=== PATIENT | male | born 1965 | race Caucasian/White ===

== ENCOUNTER 2024-08-28 11:53 | Outpatient (AMB) | payer MEDICARE, SELFPAY ==
--- NOTE | 2024-08-28 11:36 | MHC.PC.OV ---
Vital Signs 08/28/24 12:05 Height 5 ft 9.29 in Weight 249 lb 8 oz BMI 36.5 BP 128/68 Blood Pressure Location Lt brachial Position Sitting Respiration 16 Pulse 58 Pulse Source Pulse Oximeter Temp 97.5 F Temp Source Oral Pulse Oximetry (%) 98 Oxygen Delivery Method Room Air Intake Visit Reasons: isabella from [facility] Intake Note: New patient visit Information Technology Associate Required: No Allergies No Known Allergies Allergy (Verified 08/28/24 11:37) Tobacco use date assessed: 08/28/24 Dental Screening Dental Screen Date: 08/28/24 Did you have a dental visit in the last 12 months?: Yes Did you have a dental problem in the last 6 months where you did not have access to dental care?: No Was dental information given to patient?: Patient has dentist HPI HPI Comments History of Present Illness Details This is a 59-year-old male with a past medical history of prediabetes, coronary artery disease, sleep apnea, hyperlipidemia, chronic diastolic CHF, tobacco use disorder, hepatic steatosis and hypertension presenting to [facility] care. He transferred from my panel at [facility] care. Patient sees Cardiology, Dr. Baker. He is currently on valsartan, chlorthalidone, nebivolol, atorvastatin. He has a history of melanoma. He has skin exams with [facility]. He is up-to-date. He is compliant with a CPAP for sleep apnea. The patient discontinued his testosterone gel because felt like it never helped with the symptoms, and his levels with still fluctuate on it. He has seen endocrinology for this. He is concerned about the side effects of testosterone replacement as well. He is not interested in further treatment at this time. He has prediabetes. He is treated with Ozempic 2 mg weekly and has maintained his weight loss. Patient saw his back surgeon recently. He was prescribed Celebrex and Flexeril. He is off all opioids. His back still bothers him a lot, and they were discussing a spinal stimulator, but he is not going to proceed with it at this time. Patient was also taking Motrin, and he agreed to stop since he is on Celebrex now. ROS: Constitutional: No unexplained weight loss, fever, chills or night sweats. Respiratory: No shortness of breath, cough or sputum production. Cardiovascular: No chest pain, chest pressure or chest discomfort. Gastrointestinal: No anorexia, nausea, vomiting or diarrhea. No abdominal pain or blood in stool. Neurologic: No headache, dizziness, syncope Psychiatric: No SI/HI. Physical exam: Constitutional: Alert, in no distress. Head: Normocephalic. Neck: Supple, Full range of motion. No lymphadenopathy. No palpable thyroid masses. Respiratory: Clear to auscultation. Neurologic: No focal neurological deficits. Musculoskeletal: Antalgic gait Extremities: Warm and well perfused. No clubbing, cyanosis or edema. Psychiatric: Normal mood and affect [facility] Medical History (Updated 08/28/24 @ 12:22 by MARIE Ayala) History of esophageal dilatation Tobacco use disorder Spinal stenosis of lumbar region Prediabetes Obstructive sleep apnea Obesity Low testosterone Insomnia Impotence of organic origin Essential hypertension Hyperlipidemia Hyperkalemia Hepatic steatosis History of depression History of infectious mononucleosis History of cocaine abuse Gout GERD (gastroesophageal reflux disease) Chronic diastolic (congestive) heart failure Chronic back pain CAD (coronary artery disease) Bruit of left carotid artery Backache Anemia Surgical History (Updated 08/28/24 @ 12:22 by MARIE Ayala) History of knee replacement History of lumbar fusion Hx of shoulder surgery History of appendectomy Social History Housing: House Cigarettes Per Day: 10 Years Smoked: 40 e-Cigarette/Vaping Use: Former Use Second Hand Smoke Exposure: No service: Yes Current occupational status: employed and retired Current occupation: Former long term nurse Cognitive needs: No Hearing needs: No Vision needs: No Physical exam (Primary Care) Vital Signs: Last Vital Signs Temp 97.5 F 08/28/24 12:05 Pulse 58 08/28/24 12:05 Resp 16 08/28/24 12:05 BP 128/68 08/28/24 12:05 Pulse Ox 98 08/28/24 12:05 Oxygen Delivery Method Room Air 08/28/24 12:05 BMI result Body Mass Index 36.5 Tobacco/Smoking Status: Tobacco use Status Tobacco use date assessed 08/28/24 08/28/24 12:11 e-Cigarette/Vaping Use Former Use 08/28/24 12:11 Coding Level of Care Code Est Pt Level 5 (41649) Complex EM visit Add On G2211 Diagnoses Obstructive sleep apnea G47.33 Low testosterone R79.89 Spinal stenosis of lumbar region M48.061 Prediabetes R73.03 Obesity E66.9 CAD (coronary artery disease) I25.10 Time Spent (min) 48 Comment Updating chart, direct patient care, completing documentation Assessment & Plan Assessment & Plan (1) Obstructive sleep apnea: Code(s): G47.33 - Obstructive sleep apnea (adult) (pediatric) Category: Medical Plan: He has maintained weight loss, and he is going to try to lose more weight. Continue CPAP. Avoid alcohol. (2) Low testosterone: Code(s): R79.89 - Other specified abnormal findings of blood chemistry Category: Medical Plan: Patient not interested in further treatment or evaluation at this time. (3) Spinal stenosis of lumbar region: Code(s): M48.061 - Spinal stenosis, lumbar region without neurogenic claudication Category: Medical Plan: Followed by Neurosurgery. Off opioids. Reviewed side effects of Celebrex. Advised not to take this with other NSAIDs. Med list updated. (4) Prediabetes: Code(s): R73.03 - Prediabetes Category: Medical Plan: On Ozempic. Check hemoglobin A1c. (5) Obesity: Code(s): E66.9 - Obesity, unspecified Category: Medical Plan: Continue efforts at weight loss. Recheck TSH. Lifestyle modifications reviewed. Continue GLP 1. (6) CAD (coronary artery disease): Code(s): I25.10 - Atherosclerotic heart disease of [place] coronary artery without angina pectoris Category: Medical Plan: No anginal symptoms. Continue current medications. Check lipid profile. Plan He will receive an updated COVID-19 booster and flu shot at his pharmacy. He will schedule a physical exam in 6 months. Orders: Orders Lipid Panel Today D64.9 - Anemia, unspecified, E78.5 - Hyperlipidemia, unspecified, F17.200 - Nicotine dependence, unspecified, uncomplicated, I25.10 - Atherosclerotic heart disease of [place] coronary artery without angina pectoris, K76.0 - Fatty (change of) liver, not elsewhere classified Prostate Specific Antigen Today D64.9 - Anemia, unspecified, E78.5 - Hyperlipidemia, unspecified, F17.200 - Nicotine dependence, unspecified, uncomplicated, I25.10 - Atherosclerotic heart disease of [place] coronary artery without angina pectoris, K76.0 - Fatty (change of) liver, not elsewhere classified, Z12.5 - Encounter for screening for malignant neoplasm of prostate TSH reflex Free T4 Today D64.9 - Anemia, unspecified, E78.5 - Hyperlipidemia, unspecified, F17.200 - Nicotine dependence, unspecified, uncomplicated, I25.10 - Atherosclerotic heart disease of [place] coronary artery without angina pectoris, K76.0 - Fatty (change of) liver, not elsewhere classified Complete Blood Count no Diff Today D64.9 - Anemia, unspecified, E78.5 - Hyperlipidemia, unspecified, F17.200 - Nicotine dependence, unspecified, uncomplicated, I25.10 - Atherosclerotic heart disease of [place] coronary artery without angina pectoris, K76.0 - Fatty (change of) liver, not elsewhere classified Hemoglobin A1c Today D64.9 - Anemia, unspecified, E11.9 - Type 2 diabetes mellitus without complications, E78.5 - Hyperlipidemia, unspecified, F17.200 - Nicotine dependence, unspecified, uncomplicated, I25.10 - Atherosclerotic heart disease of [place] coronary artery without angina pectoris, K76.0 - Fatty (change of) liver, not elsewhere classified Comprehensive Met. Panel Today D64.9 - Anemia, unspecified, E78.5 - Hyperlipidemia, unspecified, F17.200 - Nicotine dependence, unspecified, uncomplicated, I25.10 - Atherosclerotic heart disease of [place] coronary artery without angina pectoris, K76.0 - Fatty (change of) liver, not elsewhere classified Vitamin B12 Today D64.9 - Anemia, unspecified IRON PROFILE Today D64.9 - Anemia, unspecified Medications: Discontinued ibuprofen Discontinued Reason: Patient no longer taking 800 mg PO BID PRN 60 tabs 0RF fever or pain
[2024-08-28 12:05] VITALS: BP 128/68; PULSE 58; RESP 16; TEMP 36.4; O2SAT 98; BMI 36.5
== END 2024-08-28 15:41 | disposition home or self-care (01) ==
PROVIDERS: Visit Provider Physician Assistant Medical
DX: G47.33 Obstructive sleep apnea (adult) (pediatric) (principal); R79.89 Other specified abnormal findings of blood chemistry; Z68.36 Body mass index [BMI] 36.0-36.9, adult; E66.9 Obesity, unspecified; M48.061 Spinal stenosis, lumbar region without neurogenic claudication; R73.03 Prediabetes; I25.10 Atherosclerotic heart disease of native coronary artery without angina pectoris

== ENCOUNTER → 2024-08-28 11:53 | Outpatient (BNVA) | payer MEDICARE, SELFPAY | PROVIDERS: Visit Provider Physician Assistant Medical | DX: G47.33 Obstructive sleep apnea (adult) (pediatric) (principal); R79.89 Other specified abnormal findings of blood chemistry; M48.061 Spinal stenosis, lumbar region without neurogenic claudication; R73.03 Prediabetes; E66.9 Obesity, unspecified; Z68.36 Body mass index [BMI] 36.0-36.9, adult; I25.10 Atherosclerotic heart disease of native coronary artery without angina pectoris; I11.0 Hypertensive heart disease with heart failure; I50.32 Chronic diastolic (congestive) heart failure; E78.5 Hyperlipidemia, unspecified; Z79.85 Long-term (current) use of injectable non-insulin antidiabetic drugs; Z99.89 Dependence on other enabling machines and devices | CPT/HCPCS: 99212 ==

== ENCOUNTER 2024-09-22 11:26 | Outpatient (REF) | payer MEDICARE, SELFPAY ==
[2024-09-22 14:30] LABS: Hemoglobin 13.2 g/dl (14.0-18.0); Mean Corpuscular HGB Conc 33.8 g/dl (31.0-36.0); Mean Corpuscular Hemoglobin 27.8 pg (27.0-33.0); Mean Corpuscular Volume 82.3 fL (80.0-98.0); Platelet Count 193 X10*3/uL (160-400); Red Blood Count 4.74 X10*6/uL (4.60-5.80); Red Cell Distribution Width 14.3 % (11.0-16.0); White Blood Count 6.3 X10*3/uL (4.8-10.8)
[2024-09-22 14:31] LABS: Estimated Average Glucose 126 mg/dL; Hemoglobin A1C 145.2217 umol/L; Total Hemoglobin (HGBA1C) 3473.3079 umol/L
[2024-09-22 14:56] LABS: Alanine Aminotransferase 39 U/L (0-40); Albumin Level 4.5 g/dL (3.5-5.0); Alkaline Phosphatase 88 U/L (39-117); Anion Gap 9 (12-20); Aspartate Amino Transferase 29 U/L (5-37); Bilirubin Total 0.5 mg/dL (0.0-1.0); Blood Urea Nitrogen 20 mg/dL (9-16); Calcium 9.6 mg/dL (8.4-10.2); Carbon Dioxide 30 mmol/L (22-29); Chloride 103 mmol/L (96-108); Cholesterol 139 mg/dL (<200); Estimated Glomerular Filt Rate > 60; Glucose Random 85 mg/dL (60-115); HDL Cholesterol 46 mg/dL (>40); Iron 117 mcg/dL (45-160); LDL Cholesterol Calculated 76 mg/dL (<100); Percent Iron Saturation 37 % (15-50); Potassium 4.1 mmol/L (3.3-5.1); Sodium 138 mmol/L (135-145); Total Iron Binding Capacity 320 mcg/dL (228-428); Total Protein 6.8 g/dL (6.5-8.0); Triglycerides 87 mg/dL (<150); Unsaturated Iron Binding 203 ug/dL
[2024-09-22 14:57] LABS: TSH reflex Free T4 2.62 uIU/mL (0.32-4.0)
[2024-09-22 15:01] LABS: Prostate Specific Antigen 0.31 ng/mL (<0.05-4.0); Vitamin B12 422 pg/mL (200-900)
== END 2024-09-22 11:27 | disposition home or self-care (01) ==
LOC: HO.WFDLDS 11:26
PROVIDERS: Visit Provider Physician Assistant Medical
DX: I25.10 Atherosclerotic heart disease of native coronary artery without angina pectoris (principal); F17.200 Nicotine dependence, unspecified, uncomplicated; E78.5 Hyperlipidemia, unspecified; K76.0 Fatty (change of) liver, not elsewhere classified; D64.9 Anemia, unspecified; Z12.5 Encounter for screening for malignant neoplasm of prostate; E11.9 Type 2 diabetes mellitus without complications
CPT/HCPCS: 36415; 80053; 80061; 82607; 83036; 83540; 84153; 84443; 85027

== ENCOUNTER 2025-01-22 09:16 | Outpatient (REF) | payer MEDICARE, SELFPAY ==
[2025-01-22 11:28] LABS: MANUAL DIFF FLAG NO
[2025-01-22 11:42] LABS: Basophils Percent Auto 0.6 % (0-2); Eosinophils Absolute Auto 0.1 X10*3/uL (0.0-0.4); Eosinophils Percent Auto 1.5 % (0-4); Hematocrit 39.7 % (42.0-52.0); Hemoglobin 13.5 g/dl (14.0-18.0); Imm Gran Abs Auto 0.02 X10*3/uL (0.00-0.03); Imm Gran Pct Auto 0.4 % (0.0-0.4); Lymphocytes Absolute Auto 1.6 X10*3/uL (1.2-4.9); Lymphocytes Percent Auto 29.9 % (20-40); Mean Corpuscular Hemoglobin 27.8 pg (27.0-33.0); Mean Corpuscular Volume 81.9 fL (80.0-98.0); Mean Platelet Volume 8.9 fL (9.4-12.4); Monocytes Absolute Auto 0.5 X10*3/uL (0.1-1.2); Monocytes Percent Auto 8.9 % (2-11); Neutrophils Absolute Auto 3.2 x10*3/uL (2.0-8.3); Neutrophils Percent Auto 58.7 % (45-73); Platelet Count 198 X10*3/uL (160-400); Red Blood Count 4.85 X10*6/uL (4.60-5.80); White Blood Count 5.4 X10*3/uL (4.8-10.8)
== END 2025-01-22 09:17 | disposition home or self-care (01) ==
LOC: HO.WFDLDS 09:16
PROVIDERS: Visit Provider Physician Assistant Medical
DX: D64.9 Anemia, unspecified (principal)
CPT/HCPCS: 36415; 85025

== ENCOUNTER 2025-03-09 | Outpatient (REF) | payer MEDICARE, SELFPAY ==
--- OUTSIDE RECORDS SUMMARY | 2025-03-09 10:22 | XMS_ITS | Clinical Summary ---
Author Organization [facility] Address [address] [place] [address] Care Team Providers Care Ferry Pilot Name Role Phone Unknown, Md Primary Care Provider Unavailabl e Social History Tobacco Use Types Packs/Day Years Used Date Smoking Tobacco: Never Assessed Sex and Gender Information Value Date Recorded Sex Assigned at Not on file Gender Identity Not on file Sexual Orientation Not on file Job Start Date Occupation Industry Not on file Not on file Not on file Plan of Treatment Health Maintenance Due Date Last Done Comments Hepatitis C Screening 1965 COVID-19 Vaccine (#1) 1963 Depression Screening 1975 Preventative Health Evaluation 1981 DTap / Tdap / Td (1 - Tdap) 1982 Colon Cancer Screening (Colonoscopy) 2008 Shingrix-Zoster Vaccine (1 of 2) 2013 Influenza Vaccine (#1) 2024 RSV Adult > 60+ Yrs or Pregn ant (1 - 1-dose 75+ series) 2038 Hepatitis B Vaccines Aged Out No long er eligible based on patient's age to complete this topic Pneumococcal Vaccine Aged Out No long er eligible based on patient's age to complete this topic RSV Ped < 20 months Aged Out No longe r eligible based on patient's age to complete this topic Care Teams Ferry Pilot Relationship Specialty Start Date End Date Unknown, PCP - General 01/29/24
--- OUTSIDE RECORDS SUMMARY | 2025-03-09 10:22 | XMS_ITS | Clinical Summary ---
Author Organization [facility] Address [address] [place] [address] Care Team Providers Care Staff Command And Control Officer Name Role Phone Carlos Patton MD Primary Care Provide r Social History Tobacco Use Types Packs/Day Years Used Date Smoking Tobacco: Never Assessed Sex and Gender Information Value Date Recorded Sex Assigned at Not on file Legal Sex Male 12:54 PM EST Gender Identity Not on file Sexual Orientation Not on file Plan of Treatment Health Maintenance Due Date Last Done Comments Hepatitis A Vaccines (1 of 2 - Risk 2-dose series) 1982 Pneumococcal Vaccine: 50+ Years (1 of 1 - PCV) 2013 Zoster Vaccines (2 of 3) 04/04/2017 02/07/2017 Hepatitis B Vaccines (1 of 3 - Risk 3-dose series) 2023 RSV Immunization Adult Patients (1 - Risk 60-74 years 1-dose series) 2023 Cholesterol Screening (Lipid Panel) 06/03/2024 Colorectal Cancer Screening: Colonoscopy 06/03/2024 Depression Screening 06/03/2024 HIV Screening 06/03/2024 Hepatitis C Screening 06/03/2024 Social Influencers of Health Screening 06/03/2024 COVID-19 Vaccine ( season) 2024 03/23/2022, 10/06/2021, 01/27/2021, Additional history exists Hypertension/CHF/CAD Annual BMP Blood Test 12/03/2024 Influenza Vaccine (Season Ended) 2025 09/27/2022, 10/06/2021, 07/23/2020, Additional history exists DTaP,Tdap,and Td Vaccines (2 - Td or Tdap) 09/27/2032 09/27/2022 HIB Vaccines Aged Out No longer eligi ble based on patient's age to complete this topic HPV Vaccines Aged Out No longer eligi ble based on patient's age to complete this topic IPV Vaccines Aged Out No longer eligi ble based on patient's age to complete this topic MMR Vaccines Aged Out No longer eligi ble based on patient's age to complete this topic Meningococcal ACWY Vaccine Aged Out N o longer eligible based on patient's age to complete this topic Meningococcal B Vaccine Aged Out No l onger eligible based on patient's age to complete this topic Pneumococcal Vaccine: Pediatrics (0 to 5 Years) and At-Risk Patients (6 to 64 Years) Aged Out No longer eligible based on patient's age to complete this topic RSV Immunization Patients Under 20 months Aged Out No longer eligible based on patient's age to complete this topic Varicella Vaccines Aged Out No longer eligible based on patient's age to complete this topic Care Teams Staff Command And Control Officer Relationship Specialty Start Date End Date Carlos Patton MD PCP - General Internal Medicine 03/28/19
--- OUTSIDE RECORDS SUMMARY | 2025-03-09 10:22 | XMS_ITS | Encounter Summary ---
Author Organization [facility] Address [address] [place] [address] Care Team Providers Care Fixed Wing Pilot Name Role Phone Barbara Kaba MD Primary Care Provider Maximino Melo MD Unavailable [phone] Candice Ortiz MD Unavailable Pcp, No Primary Care Provider Unavailabl e Encounter Details Date Type Department Care Team (Late st Contact Info) Description 09/12/2021 Erroneous Encounter [facility] CONVERSION DEPT [address] [place] [address] ProviderVimal MD Social History Tobacco Use Types Packs/Day Years Used Date Smoking Tobacco: Former Cigarettes 1 30 0 03/16/1991 - 03/16/2021 Smokeless Tobacco: Never Comments:will wean himself d own Alcohol Use Standard Drinks/Week Comments Not Currently 0 (1 standard drink = 0.6 oz pur e alcohol) Sex and Gender Information Value Date Recorded Sex Assigned at Male 06/11/2024 9:22 AM EDT Legal Sex Male 2:45 PM EDT Gender Identity Male 06/11/2024 9:22 AM EDT Sexual Orientation Not on file documented as of this encounter Plan of Treatment Not on file documented as of this encounter Visit Diagnoses Not on filedocumented in this encounter Care Teams Fixed Wing Pilot Relationship Specialty Start Date End Date Barbara Kaba MD PCP - General 12/04/18 12/10/23 Pcp, No PCP - General General Medicine 02/06/24 Maximino Melo MD Fork Lift Technician Cardiovascular Disease 12/04/18 Candice Ortiz MD [address] [place] [address] Surgery, Orthopedic 01/18/21 documented as of this encounter
--- OUTSIDE RECORDS SUMMARY | 2025-03-09 10:22 | XMS_ITS | Encounter Summary ---
Author Organization [facility] Address [address] [place] [address] Care Team Providers Care Sleeve Separator Name Role Phone Barbara Kaba MD Primary Care Provider [phone] Maximino Melo MD Unavailable [phone] Candice Ortiz MD Unavailable Pcp, No Primary Care Provider Unavailabl e Encounter Details Date Type Department Care Team (Latest Contact Info) Description 02/21/2021 Lab Requisition [facility] [address] [place] [address] [address] [place] [address] Candice Ortiz MD [address] [place] [address] Encounter for laboratory testing for COVID-19 virus Social History Tobacco Use Types Packs/Day Years Used Date Smoking Tobacco: Some Days Cigarettes Smokeless Tobacco: Never Comments:will wean himself d own Alcohol Use Standard Drinks/Week Comments Not Currently 0 (1 standard drink = 0.6 oz pur e alcohol) Sex and Gender Information Value Date Recorded Sex Assigned at Male 06/11/2024 9:22 AM EDT Legal Sex Male 2:45 PM EDT Gender Identity Male 06/11/2024 9:22 AM EDT Sexual Orientation Not on file COVID-19 Exposure Response Date Recorded In the last month, have you been in contact with someone who was confirmed or suspected to have Coronavirus / COVID-19? No / Unsure 02/09/2021 8:11 AM EDT documented as of this encounter Plan of Treatment Not on file documented as of this encounter Procedures Procedure Name Priority Date/Time Associated Diagnosis Comments COVID-19 (SARS-COV-2) HASEEB Routine 02/21/2021 10:44 AM EDT Encounter for laboratory testing for COVID-19 virus [ICD-10-CM] documented in this encounter Results * COVID-19 (SARS-CoV-2), HASEEB (In-House) (02/21/2021 10:44 AM EDT) SARS CoV 2 Not Detected Not Detected 02/21/2021 2:59 PM EDT [facility] Comment: Negative results do not preclude SARS-CoV-2 (COVID-19)infection and should not be used as the sole basis for treatment or other patient management decisions. The SARS-CoV-2 (Covid-19) Nucleic Acid Amplification Assay is limited to laboratories certified under the Clinical Laboratory Improvement Amendments of 1988 (CLIA), 42 U.S.C. 263a, to perform high complexity tests. Nucleic acid amplication tests include RT-PCR and TMA. This assay has not been FDA cleared or approved, however, this assay has been authorized by the Food and Drug Administration (FDA) under an Emergency Use Authorization (EUA). ??Validation was completed and performance characteristics established by [facility] as per the FDA and CLIA requirement for this EUA. The Aptima SARS-CoV-2 assay Letter of Authorization, along with the authorized Fact Sheet for Healthcare Providers, the authorized Fact Sheet for Patients, and authorized labeling are available on the FDA website: https://www.fda.gov/medical-devices/jlmgeojtq-ydcxaxygbu-fgnphfq-devices/emergen - u-qwdhuqmsupeujz-otyrwbn-devices. Performed at [facility], [place], [place] ??[place] License 0385 ??CLIA [id number] Source Nasopharyngeal 02/21/2021 2:59 PM EDT [facility] Comment:Performed at [facility], [facility], [place] license No. [id number] CLIA No. [id number] Microbiology Nasopharyngeal swab / Unknown 02/21/2021 10:44 AM EDT 02/21/2021 10:44 AM EDT us Candice Ortiz MD MICROBIOLOGY - GENERAL ORDERABLE S Final Result [facility] [address] [place] [address] documented in this encounter Visit Diagnoses Diagnosis Encounter for laboratory testing for COVID-19 virus documented in this encounter Care Teams Sleeve Separator Relationship Specialty Start Date End Date Barbara Kaba MD PCP - General 12/04/18 12/10/23 Pcp, No PCP - General General Medicine 02/06/24 Maximino Melo MD Manager Resource Cardiovascular Disease 12/04/18 Candice Ortiz MD [address] [facility] [address] [place] [address] Surgery, Orthopedic 01/18/21 documented as of this encounter
--- OUTSIDE RECORDS SUMMARY | 2025-03-09 10:22 | XMS_ITS | Encounter Summary ---
Author Organization [facility] Address [address] [place] [address] Care Team Providers Care Reliability Technologist Name Role Phone Barbara Kaba MD Primary Care Provider Maximino Melo MD Unavailable [phone] Candice Ortiz MD Unavailable Pcp, No Primary Care Provider Unavailabl e Encounter Details Date Type Department Care Team (Late st Contact Info) Description 09/18/2023 Scanned Document [facility] [address] [phone] Candice Ortiz MD [address] [place] [phone] Social History Tobacco Use Types Packs/Day Years [...] on filedocumented in this encounter Care Teams Reliability Technologist Relationship Specialty Start Date End Date Barbara Kaba MD PCP - General 12/04/18 12/10/23 Pcp, No PCP - General General Medicine 02/06/24 Maximino Melo MD Process Design Engineer Cardiovascular Disease 12/04/18 Candice Ortiz MD [address] [place] [address] Surgery, Orthopedic 01/18/21 documented as of this encounter
--- OUTSIDE RECORDS SUMMARY | 2025-03-09 10:22 | XMS_ITS | Encounter Summary ---
Author Organization [facility] Address [address] [place] [address] Care Team Providers Care Early Childhood Director Name Role Phone Barbara Kaba MD Primary Care Provider [phone] Maximino Melo MD Unavailable [phone] Candice Ortiz MD Unavailable Pcp, No Primary Care Provider Unavailabl e Encounter Details Date Type Department Care Team (Late st Contact Info) Description 11/13/2023 Scanned Document [facility] [address] [phone] Candice Ortiz MD [address] [place] [address] Social History Tobacco Use Types Packs/Day Years [...] on filedocumented in this encounter Care Teams Early Childhood Director Relationship Specialty Start Date End Date Barbara Kaba MD PCP - General 12/04/18 12/10/23 Pcp, No PCP - General General Medicine 02/06/24 Maximino Melo MD Corncob Pipe Manufacturing Supervisor Cardiovascular Disease 12/04/18 Candice Ortiz MD [address] [place] [address] Surgery, Orthopedic 01/18/21 documented as of this encounter
--- OUTSIDE RECORDS SUMMARY | 2025-03-09 10:22 | XMS_ITS | Encounter Summary ---
Author Organization [facility] Address [address] [place] [address] Care Team Providers Care Retail Field Representative Name Role Phone Barbara Kaba MD Primary Care Provider [phone] Maximino Melo MD Unavailable [phone] Candice Ortiz MD Unavailable Pcp, No Primary Care Provider Unavailabl e Encounter Details Date Type Department Care Team (Late st Contact Info) Description 06/06/2021 Erroneous Encounter [facility] CONVERSION DEPT [address] [place] [address] ProviderVimal MD Social History Tobacco Use Types [...] on filedocumented in this encounter Care Teams Retail Field Representative Relationship Specialty Start Date End Date Barbara Kaba MD PCP - General 12/04/18 12/10/23 Pcp, No PCP - General General Medicine 02/06/24 Maximino Melo MD Senior Qc Technician Cardiovascular Disease 12/04/18 Candice Ortiz MD [address] [place] [address] Surgery, Orthopedic 01/18/21 documented as of this encounter
--- OUTSIDE RECORDS SUMMARY | 2025-03-09 10:22 | XMS_ITS | Clinical Summary ---
Author Organization Formerly [facility] Address [address] [place] [address] Care Team Providers Care Foam Rubber Curer Name Role Phone Maximino Melo MD Unavailable [phone] Candice Ortiz MD Unavailable Pcp, No Primary Care Provider Unavailabl e Allergies No known active allergies Medications nebivolol (BYSTOLIC) 20 MG tablet Take 1 tablet (20 mg total) by mouth every morning. Active atorvastatin (LIPITOR) 20 MG tablet Take 1 tablet (20 mg total) by mouth every evening. Active NIFEdipine ER (ADALAT CC) 30 MG 24 hr tablet Take 1 tablet (30 mg total) by mouth every morning. Active gabapentin (NEURONTIN) 600 MG tablet Take 1 tablet (600 mg total) by mouth 3 (three) times a day. Active valsartan (DIOVAN) 320 MG tablet Take 1 tablet (320 mg total) by mouth every morning. Active omega-3 acid ethyl esters (Lovaza) 1 G capsule Take 2 capsules (2 g total) by mouth 2 (two) times a day. Active allopurinol (ZYLOPRIM) 100 mg tablet Take 2 tablets (200 mg total) by mouth every morning. 02/09/2021 Active testosterone (ANDROGEL) 25 MG/2.5GM (1%) Gel Place 1 Dose on the skin every morning. 01/27/2021 Active aspirin enteric coated (ECOTRIN LOW STRENGTH) 81 MG EC tabletIndicatio ns:Pseudoclaudi cation syndrome Take 1 tablet (81 mg total) by mouth 2 (two) times a day. 56 tablet 04/22/2021 Active acetaminophen (TYLENOL) 325 MG tabletIndicatio ns:Pseudoclaudi cation syndrome Take 3 tablets (975 mg total) by mouth every 6 (six) hours around the clock. 168 tablet 04/22/2021 Active methocarbamol (ROBAXIN) 750 MG tabletIndicatio ns:Pseudoclaudi cation syndrome Take 1 tablet (750 mg total) by mouth 4 times daily (every 6 hours) as needed for muscle spasms. 24 tablet 04/22/2021 Active cyclobenzaprine (FLEXERIL) 10 MG tabletIndicatio ns:Radiculopath y, lumbar region Take 1 tablet (10 mg total) by mouth 3 times daily (every 8 hours) as needed for muscle spasms. 60 tablet 08/14/2024 Active celeCOXIB (CeleBREX) 200 MG capsuleIndicati ons:Radiculopat hy, lumbar region Take 1 capsule (200 mg total) by mouth 2 (two) times a day. 28 capsule 08/14/2024 Active Ozempic, 2 MG/DOSE, 8 MG/3ML prefilled pen injection 2 mg. Active ibuprofen (MOTRIN) 800 mg tablet Take 1 tablet (800 mg total) by mouth 3 times daily (every 8 hours) as needed. for pain Active DULoxetine (CYMBALTA) 30 MG capsule 1 capsule (30 mg total) by Mouth/Oral Cavity route every 12 hours. 11/16/2024 Active buprenorphine (BUTRANS) 10 mcg/hr weekly patchIndication s:Postlaminecto my syndrome, lumbar region Place 1 patch on the skin every 7 days. Max Daily Amount: 1 patch 4 patch 02/25/2025 Active Active Problems Problem Noted Date Diagnosed Date Anemia 01/12/2025 Bruit of left carotid artery 01/12/2025 Chronic diastolic heart failure 01/12/2025 Overview (01/12/2025): Per cardiology notes. Gastroesophageal reflux disease 01/12/2025 Gout 01/12/2025 H/O cannabis dependence/abuse 01/12/2025 H/O cocaine abuse 01/12/2025 H/O infectious mononucleosis 01/12/2025 H/O: depression 01/12/2025 Hepatic steatosis 01/12/2025 Hyperkalemia 01/12/2025 Insomnia 01/12/2025 Low testosterone 01/12/2025 Morbid obesity with BMI of 40.0-44.9, adult 01/03 Prediabetes 01/12/2025 Spinal stenosis of lumbar region 01/12/2025 Tobacco user 01/12/2025 Tear of medial meniscus of knee 01/12/2025 Overview (01/12/2025): Left knee. Dr. Chandler. 09/2019. Pseudoclaudication syndrome 04/20/2021 Degeneration of lumbar intervertebral disc 01/06 Sleep apnea 12/19/2018 Overview (12/19/2018): uses C-PAP Hypertension 12/19/2018 Hyperlipidemia 12/19/2018 Lumbosacral spondylosis without myelopathy 02/08 Postlaminectomy syndrome, lumbar region 02/09/20 15 Sacroiliitis, not elsewhere classified 5 Stricture of esophagus Coronary artery disease Depression Overview (02/03/2021): Due to increase pain Encounters Date Type Department Care Team Description 02/25/2025 11:20 AM EDT Office Visit [facility] [id number] [address] [phone] Phillip Deras DO Postlaminectomy syndrome, lumbar region (Primary Dx) 02/25/2025 Travel 02/12/2025 11:10 AM EDT Ancillary Procedure [facility] [address] [phone] 02/12/2025 10:00 AM EDT Office Visit [facility] [address] [phone] Candice Ortiz MD Radiculopathy, lumbar region (Primary Dx) 02/05/2025 Telephone [id number] [address] [phone] Phillip Deras DO 01/12/2025 11:30 AM EDT Office Visit [id number] [address] [phone] Candice Ortiz MD Ramos, Lauren H, PAAlyceC Postlaminectomy syndrome, lumbar region (Primary Dx); Failed back syndrome; Degeneration of intervertebral disc of lumbar region with discogenic back pain and lower extremity pain 01/12/2025 Travel from Last 3 Months Immunizations Immunization Administration Dates Next Due Influenza, Unspecified 08/05/2018 Family History Medical History Relation Name Comments No Known Problems Brother No Known Problems Daughter Hyperlipidemia Father Hypertension Father Lung cancer Mother No Known Problems Sister 1 No Known Problems Sister 2 Relation Name Status Comments Brother Alive Daughter Alive Father Alive Mother Alive Sister 1 Alive Sister 2 Alive Social History Tobacco Use Types Packs/Day Years Used Date Smoking Tobacco: Former Cigarettes 1 30 0 03/16/1991 - 03/16/2021 Smokeless Tobacco: Never Tobacco Cessation:Counseling Given: Not Answered Comments:will wean himself down Alcohol Use Standard Drinks/Week Comments Not Currently 0 (1 standard drink = 0.6 oz pur e alcohol) PHQ-2 Answer Date Recorded PHQ-2 Total Score 0 01/12/2025 Physical Activity Answer Date Recorded On average, how many days pe r week do you engage in moderate to strenuous exercise (like a brisk walk)? 0 days 01/10/2025 On average, how many minutes do you exercise per day at this level? 0 min 01/10/2025 Sex and Gender Information Value Date Recorded Sex Assigned at Male 06/11/2024 9:22 AM EDT Legal Sex Male 2:45 PM EDT Gender Identity Male 06/11/2024 9:22 AM EDT Sexual Orientation Not on file Last Filed Vital Signs Vital Sign Reading Time Taken Comments Blood Pressure 136/70 02/25/2025 11:11 AM EDT Pulse 63 02/25/2025 11:11 AM EDT Temperature 36.3 ??C (97.3 ??F) 04/22/2021 7:48 AM ED T Respiratory Rate 18 02/25/2025 11:11 AM EDT Oxygen Saturation 97% 02/25/2025 11:11 AM EDT Inhaled Oxygen Concentration - - Weight 113 kg (250 lb) 02/25/2025 11:11 AM EDT Height 175.3 cm (5' 9 ) 02/25/2025 11:11 AM EDT Body Mass Index 36.92 02/25/2025 11:11 AM EDT Plan of Treatment Health Maintenance Due Date Last Done Comments Hepatitis C Virus Screening 1963 HIV Screening 1976 DTaP/Tdap/Td Vaccines (1 - Tdap) 1982 Pneumococcal Vaccines 50+ (1 of 2 - PCV) 1982 Colonoscopy 2008 Lung Cancer Screening (LDCT) 2013 Zoster (Shingles) Vaccine (1 of 2) 2013 RSV Vaccine 60 years and older and Patients (1 - Risk 60-74 years 1-dose series) 2023 COVID-19 Vaccine ( season) 2024 03/23/2022, 10/06/2021, 01/27/2021, Additional history exists Influenza Vaccine 06/05/2025 12/07/2023, , 10/06/2021, Additional history exists Hepatitis B Vaccines Aged Out No long er eligible based on patient's age to complete this topic Medical Devices Implanted Type Area Chute Loader Device Identifier Shelf Expiration Date Model / Serial / Lot [id number] Cage Spinal [id number] Modl 10d Xl Wide Sterl Lf - [id number] Implanted:Qty: 1 on 04/20/2021 by Candice Ortiz MD at [facility] Cage N/A: Spine Lumbar [employer] 10/17/2025 [id number] / / [id number] Subhash Spinal 100mm 5.5mm Illico Precontour Ti Nonst - [id number] Implanted:Qty: 1 on 01/06/2019 by Fabian Stovall MD at [facility] Nail/Subhash N/A: Spine Lumbar [employer] [id number] / / [id number] Screw Set Ti Spine Hexalobe Zodiac - [id number] Implanted:Qty: 6 on 01/06/2019 by Fabian Stovall MD at [facility] Spine N/A: Spine Lumbar [employer] [id number] / / [id number] Screw Bone Spinal 50mm Ti 6.5mm Pa Leonel - [id number] Implanted:Qty: 4 on 01/06/2019 by Fabian Stovall MD at [facility] Spine N/A: Spine Lumbar [employer] [id number] / / [id number] Screw Bone Spinal 45mm Ti 6.5mm Pa Leonel - [id number] Implanted:Qty: 2 on 01/06/2019 by Fabian Stovall MD at [facility] Spine N/A: Spine Lumbar [employer] [id number] / / [id number] Graft Bone 26mm 18mm Infs Lg Spine Rhbmp-2 Bvn Collagen - [id number] Implanted:Qty: 1 on 01/06/2019 by Fabian Stovall MD at [facility] Tissue N/A: Spine Lumbar [employer] 12/06/2020 [id number] / / [id number] Substitute Bone Graft Ms Grft Matrix Block Void Filler 20ml - [id number] Implanted:Qty: 1 on 01/06/2019 by Fabian Stovall MD at [facility] Void Filler N/A: Spine Lumbar [employer] A[employer] PER[employer]A 09/04/2021 [id number] / / [id number] Substitute Bone Graft Ms Grft Matrix Block Extension Void - [id number] Implanted:Qty: 1 on 01/06/2019 by Fabian Stovall MD at [facility] Void Filler N/A: Spine Lumbar [employer] A[employer] PER[employer] 06/04/2021 [id number] / / [id number] Osteostrand Plus Fibers Syringe Large - [id number] Implanted:Qty: 1 on 04/20/2021 by Candice Ortiz MD at [facility] Void Filler N/A: Spine Lumbar [employer] 03/02/2023 [id number] / [id number] / [id number] Rise-L Spacer [id number], 7-14mm Implanted:Qty: 1 on 01/06/2019 by Fabian Stovall MD at [facility] N/A: Spine Lumbar [employer] [id number] / / Rise-L Spacer 18 X 45mm, 7-14mm Implanted:Qty: 1 on 01/06/2019 by Fabian Stovall MD at [facility] N/A: Spine Lumbar [employer] 193.303 / / 200mm Subhash Implanted:Qty: 2 on 01/06/2019 by Fabian Stovall MD at [facility] N/A: Spine Lumbar Other [id number] / / Description:Illico 50mm Mis Subhash Implanted:Qty: 1 on 04/20/2021 by Candice Ortiz MD at [facility] N/A: Spine Lumbar [employer] I -NV-50 / / 45mm Mis Subhash Implanted:Qty: 1 on 04/20/2021 by Candice Ortiz MD at [facility] N/A: Spine Lumbar [employer] I 55-NV-45 / / 6.5x50mm Screw Implanted:Qty: 4 on 04/20/2021 by Candice Ortiz MD at [facility] N/A: Spine Lumbar [employer] I 05-PA-65-50 / / Procedures Procedure Name Priority Date/Time Associated Diagnosis Comments DRUG MONITORING, PANEL 6 WITH CONFIRMATION, URINE Routine 02/25/2025 12:22 PM EDT Postlaminectomy syndrome, lumbar region XR LUMBAR SPINE COMPLETE W/FLEX,EXT 4+VIEWS Routine 02/12/2025 11:24 AM EDT Radiculopathy, lumbar region from Last 3 Months Results * Drug Monitoring, Panel 6 With Confirmation, Urine (Q [id number]) (02/25/2025 12:22 PM EDT) Alcohol Metabolites NEGATIVE <500 ng/mL [facility] Amphetamines, Urine Ql NEGATIVE <500 ng/mL [facility] Barbiturates NEGATIVE <300 ng/mL [facility] Benzodiazepines NEGATIVE <100 ng/mL [facility] Cocaine Metabolite NEGATIVE <150 ng/mL [facility] 6 Acetylmorphine NEGATIVE <10 ng/mL [facility] Marijuana Metabolite NEGATIVE <20 ng/mL [facility] Methadone Metabolite NEGATIVE <100 ng/mL [facility] Opiates NEGATIVE <100 ng/mL [facility] Oxycodone Screen, Urine NEGATIVE <100 ng/mL [facility] Phencyclidine, Urine NEGATIVE <25 ng/mL [facility] Creatinine, Urine 104.7 > or = 20.0 mg/dL [facility] pH 6.3 4.5 - 9.0 [facility] Oxidant NEGATIVE <200 mcg/mL [facility] Notes and Comments Q [facility]Umami Comment: This drug testing is for medical treatment only. Analysis was performed as non-forensic testing and these results should be used only by healthcare providers to render diagnosis or treatment, or to monitor progress of medical conditions. LDT Notes: Confirmation tests were developed and their analytical performance characteristics have been determined by [employer]. It has not been cleared or approved by the FDA. This assay has been validated pursuant to the CLIA regulations and is used for clinical purposes. Healthcare Providers needing Interpretation assistance, please contact us at [phone] ( ) M-F, 8am to 10pm EST Urine Urine specimen / Unknown 02/25/2025 12:22 PM EDT 02/26/2025 4:54 AM EDT us Phillip Deras DO URINE ORDERABLES Final Result [facility] [address] [place] [phone] * XR Lumbar spine complete w/Flex,Ext, 4+Views (02/12/2025 11:24 AM EDT) Narrative [facility] - 02/12/2025 11:24 AM EDT This exam was performed in office at [facility] and images reviewed by orthopedic provider. ??Any findings are documented within ambulatory encounter note on date of service. us Candice Ortiz MD IMG DIAGNOSTIC IMAGING ORDERABLE S Final Result [facility] from Last 3 Months Insurance [facility] MGD MEDICARE [employer]ETNA MGD MEDICARE [facility] [place] [place] Advance Directives * Full Code (Latest Code Status on File) Date Activated Date Inactivated Comments 04/20/2021 10:14 AM * Full Code Date Activated Date Inactivated Comments 01/06/2019 4:06 PM 04/20/2021 9:56 AM * Full Code Date Activated Date Inactivated Comments 01/06/2019 6:33 AM 01/06/2019 4:06 PM Care Teams Foam Rubber Curer Relationship Specialty Start Date End Date Pcp, No PCP - General General Medicine 02/06/24 Maximino Melo MD Certified Prosthetist/Orthotist Cardiovascular Disease 12/04/18 Candice Ortiz MD [address] [place] [id number] Surgery, Orthopedic 01/18/21
--- OUTSIDE RECORDS SUMMARY | 2025-03-09 10:22 | XMS_ITS | Encounter Summary ---
Author Organization [facility] Address [address] [place] [address] Care Team Providers Care Crab Backer Name Role Phone Maximino Melo MD Unavailable [phone] Candice Ortiz MD Unavailable Pcp, No Primary Care Provider Unavailabl e Encounter Details Date Type Department Care Team (Late st Contact Info) Description 10/21/2024 Scanned Document [facility] [address] [phone] Diane Pedroza [address] [place] [address] Social History Tobacco Use Types Packs/Day Years [...] on filedocumented in this encounter Care Teams Crab Backer Relationship Specialty Start Date End Date Pcp, No PCP - General General Medicine 02/06/24 Maximino Melo MD Assessment Specialist Cardiovascular Disease 12/04/18 Candice Ortiz MD [address] [place] [address] Surgery, Orthopedic 01/18/21 documented as of this encounter
--- OUTSIDE RECORDS SUMMARY | 2025-03-09 10:22 | XMS_ITS ---
[facility] Name [facility] Organization Unknown History of Medication Use Medication Directions Dispensed Refills Start Date End Date Stat buprenorphine (BUTRANS) 10 mcg/hr weekly patch Place 1 patch on the skin every 7 days. Max Daily Amount: 1 patch 02/25/2025 active DULoxetine (CYMBALTA) 30 MG capsule 1 capsule (30 mg total) by Mouth/Oral Cavity route every 12 hours. 11/16/2024 active celeCOXIB (CeleBREX) 200 MG capsule Take 1 capsule (200 mg total) by mouth 2 (two) times a day. 08/14/2024 active allopurinol (ZYLOPRIM) 100 mg tablet Take 200 mg by mouth every morning. 02/09/2021 active atorvastatin (LIPITOR) 20 MG tablet Take 20 mg by mouth every evening. active gabapentin (NEURONTIN) 600 MG tablet Take 600 mg by mouth 3 (three) times a day. active hydrochlorothiazide (HYDRODIURIL) 12.5 MG tablet Take 12.5 mg by mouth every morning. active ibuprofen (MOTRIN) 800 mg tablet Take 1 tablet (800 mg total) by mouth 3 times daily (every 8 hours) as needed. for pain active Ozempic, 2 MG/DOSE, 8 MG/3ML prefilled pen injection 2 mg. active valsartan (DIOVAN) 320 MG tablet Take 320 mg by mouth every morning. active Problems Problem Status Onset Date Problem Type Date of Resoluti on Source Low testosterone active 2025-01-12 ProblemAct [facility] Lumbosacral spondylosis without myelopathy active 2015-02-08 ProblemAct [facility] Tobacco user active 2025-01-12 ProblemAct [facility] Gastroesophageal reflux disease active 2025-01-12 ProblemAct [facility] Sacroiliitis, not elsewhere classified active 2015-02-08 ProblemAct [facility] H/O infectious mononucleosis active 2025-01-12 ProblemAct [facility] Insomnia active 2025-01-12 ProblemAct [facility] Hyperkalemia active 2025-01-12 ProblemAct [facility] Coronary artery disease active ProblemAct [facility] Stricture of esophagus active ProblemAct [facility] Hypertension active 2018-12-19 ProblemAct [facility] Depression active ProblemAct [facility] Tear of medial meniscus of knee active 2025-01-12 ProblemAct [facility] Sleep apnea active 2018-12-19 ProblemAct [facility] Degeneration of lumbar intervertebral disc active 2019-01-06 ProblemAct [facility] Pseudoclaudication syndrome active 2021-04-20 ProblemAct [facility] H/O cocaine abuse active 2025-01-12 ProblemAct [facility] Gout active 2025-01-12 ProblemAct [facility] Spinal stenosis of lumbar region active 2025-01-12 ProblemAct [facility] H/O: depression active 2025-01-12 ProblemAct [facility] H/O cannabis dependence/abuse active 2025-01-12 ProblemAct [facility] Bruit of left carotid artery active 2025-01-12 ProblemAct [facility] Hepatic steatosis active 2025-01-12 ProblemAct [facility] Morbid obesity with BMI of 40.0-44.9, adult active 2025-01-12 ProblemAct [facility] Prediabetes active 2025-01-12 ProblemAct [facility] Anemia active 2025-01-12 ProblemAct [facility] Chronic diastolic heart failure active 2025-01-12 ProblemAct [facility] Hyperlipidemia active 2018-12-[address] Postlaminectomy syndrome, lumbar region active 2015-02-08 ProblemAct [facility] Immunizations Vaccine Date Source Lot Number Status Influenza, Unspecified 08/05/2018 [facility] co mpleted Encounters Encounter Type Encounter Reason Primary Diagnosis Location Date Ambulatory Postlaminectomy syndrome, not elsewhere classified Postlaminectomy syndrome, not elsewhere classified [facility] 02/25/2025 Ambulatory [facility] 02/12/2025 Ambulatory Radiculopathy, lumba r region Radiculopathy, lumbar region [facility] 02/12/2025 Ambulatory Postlaminectomy syndrome, not elsewhere classified Postlaminectomy syndrome, not elsewhere classified [facility] 01/12/2025 Ambulatory [facility] 09/02/2024 Ambulatory Pain Pain [facility] 08/14/2024 [facility]24 Ambulatory [facility] 02/07/2024 Ambulatory Radiculopathy, lumba r region Radiculopathy, lumbar region [place] [facility] 02/07/2024 Ambulatory [facility], [facility] 02/01/2024 [facility] 01/10/2024 [facility] 12/24/2023 Ambulatory [facility]o MD, [facility] 12/24/2023 Ambulatory [facility] MD, [facility] 11/21/2023 Ambulatory Maxim[facility] Melo MD, [facility] 11/21/2023 Ambulatory Radiculopathy, lumba r region Radiculopathy, lumbar region [place] [facility] 11/08/2023 Ambulatory Maximino Melo MD, [facility] 10/20/2023 Ambulatory Maximino Melo MD, [facility] 10/20/2023 Ambulatory Maximino Melo MD, [facility] 09/29/2023 Ambulatory [facility] Melo MD, [facility] 09/29/2023 Ambulatory Pain Pain [facility] 09/17/2023 [facility]ulatory [facility] 08/17/2023 Ambulatory [facility]o MD, [facility] 08/17/2023 Ambulatory Maxim[facility] Melo MD, [facility] 08/02/2023 Ambulatory [facility] Melo MD, [facility] 07/23/2023 Ambulatory Maxim[facility] Melo MD, [facility] 07/05/2023 Ambulatory Maximino Melo MD, [facility] 07/05/2023 Ambulatory Maximino Melo MD, [facility] 06/03/2023 [facility] 05/21/2023 [facility] 05/18/2023 [facility] 05/18/2023 [facility] 05/18/2023 [facility] 05/18/2023 Ambulatory [facility] Melo MD, [facility] 05/18/2023 Ambulatory Maximino Melo MD, [facility] 04/17/2023 Care Team Organization Name Specialty Phone Email Start Date End Da edy [facility] 02/28/2025 [facility] PCP [employer] 02/27/2025 [facility] NO PCP Primary Care 02/11/2024 [facility] 11/25/2023 [facility] ULI BURRIS Primary Care 09/17/2023 Maximino Melo MD, KENISHA 04/19/2023 [facility] Uli Burris Primary Care 12/16/2018 019
--- OUTSIDE RECORDS SUMMARY | 2025-03-09 10:22 | XMS_ITS | Encounter Summary ---
Author Organization [facility] Address [address] [place] [address] Care Team Providers Care Inweaver Name Role Phone Barbara Kaba MD Primary Care Provider Maximino Melo MD Unavailable [phone] Candice Ortiz MD Unavailable Pcp, No Primary Care Provider Unavailabl e Encounter Details Date Type Department Care Team (Late st Contact Info) Description 05/30/2021 Erroneous Encounter [facility] CONVERSION DEPT [address] [place] [phone] ProviderVimal MD Social History Tobacco Use Types [...] on filedocumented in this encounter Care Teams Inweaver Relationship Specialty Start Date End Date Barbara Kaba MD PCP - General 12/04/18 12/10/23 Pcp, No PCP - General General Medicine 02/06/24 Maximino Melo MD [employer] Cardiovascular Disease 12/04/18 Candice Ortiz MD [address] [place] [phone] Surgery, Orthopedic 01/18/21 documented as of this encounter
[2025-03-09 11:40] LABS: Estimated Average Glucose 126 mg/dL; Hemoglobin A1C 131.5097 umol/L; Total Hemoglobin (HGBA1C) 3090.9376 umol/L
[2025-03-09 12:47] LABS: Alanine Aminotransferase 42 U/L (0-40); Albumin Level 4.4 g/dL (3.5-5.0); Anion Gap 12 (12-20); Aspartate Amino Transferase 33 U/L (5-37); Blood Urea Nitrogen 32 mg/dL (9-16); Calcium 9.2 mg/dL (8.4-10.2); Carbon Dioxide 27 mmol/L (22-29); Chloride 106 mmol/L (96-108); Cholesterol 161 mg/dL (<200); Estimated Glomerular Filt Rate > 60; Glucose Random 93 mg/dL (60-115); HDL Cholesterol 44 mg/dL (>40); LDL Cholesterol Calculated 74 mg/dL (<100); Potassium 4.8 mmol/L (3.3-5.1); Sodium 140 mmol/L (135-145); Total Protein 6.7 g/dL (6.5-8.0); Triglycerides 219 mg/dL (<150)
[2025-03-09 13:08] LABS: Alkaline Phosphatase 92 U/L (39-117); Bilirubin Total 0.4 mg/dL (0.0-1.0)
== END 2025-03-09 00:01 | disposition home or self-care (01) ==
LOC: HO.WFDLDS
PROVIDERS: Visit Provider Physician Assistant Medical
DX: K76.0 Fatty (change of) liver, not elsewhere classified (principal); E78.5 Hyperlipidemia, unspecified; E87.5 Hyperkalemia; E11.9 Type 2 diabetes mellitus without complications
CPT/HCPCS: 36415; 80053; 80061; 83036

== ENCOUNTER 2025-03-12 08:15 | Outpatient (AMB) | payer MEDICARE, SELFPAY ==
--- NOTE | 2025-03-12 08:21 | MHC.PC.OV ---
Vital Signs 03/12/25 08:29 Height 5 ft 9.3 in Weight 267 lb 6 oz BMI 39.1 BP 114/74 Blood Pressure Location Rt brachial Position Sitting Respiration 14 Pulse 64 Pulse Source Pulse Oximeter Pulse Oximetry (%) 97 Oxygen Delivery Method Room Air Oxygen Flow Rate 98.1 Intake Visit Reasons: CPE Intake Note: Cristi presents in the office today for his annual physical. Allergies No Known Allergies Allergy (Verified 03/12/25 08:25) Tobacco use date assessed: 03/12/25 Dental Screening Dental Screen Date: 03/12/25 Did you have a dental visit in the last 12 months?: Yes Did you have a dental problem in the last 6 months where you did not have access to dental care?: No Was dental information given to patient?: Patient has dentist HPI HPI Comments History of Present Illness Details This is a 59-year-old male with a past medical history of prediabetes, coronary artery disease, sleep apnea, hyperlipidemia, chronic diastolic CHF, tobacco use disorder, hepatic steatosis and hypertension presenting for a physical exam. Patient sees Cardiology, Dr. Baker. He is currently on valsartan, chlorthalidone, nebivolol, atorvastatin. His blood pressure is well-controlled. The patient has gained 18 lb since his visit in August 2024. He has prediabetes. Patient says he has missed some doses on Ozempic, and he is eating sweets like chocolate regularly. He isn't able to do much exercise due to his back. He has a history of melanoma. He has skin exams with [facility]. He is compliant with a CPAP for sleep apnea. The patient was previously on testosterone gel but discontinued it because felt like it never helped with the symptoms, and his levels with still fluctuate on it. He has seen endocrinology for this. He is concerned about the side effects of testosterone replacement as well. He is not interested in further treatment at this time. Patient saw his back surgeon recently. He is getting a thoracic MRI. He saw physiatry for a spine stimulator evaluation. It was not felt that he is a good candidate for this. They discussed Butrans, but he really does not want to go back on opioids. He took himself off of them several years ago. His currently regimen is Cymbalta, Gabapentin, Flexeril, Ibuprofen. Tetanus UTD. He will pursue Shrigrix, pneumonia vaccine and COVID vaccine at his pharmacy. We messaged about mild anemia on his blood work. Patient reported he has had this for many years. He had an endoscopy/colonoscopy 06/01/[address] Roberts which revealed 2 hyperplastic colon polyps. He was told to repeat this in 5 years. He has normal kidney function. One liver enzyme is mildly elevated, and this might be related to recent weight gain and diet so he is going to work on that and repeat the test. Denies abdominal pain, nausea, vomiting, jaundice. Iron and B12 were normal in September. Anemia mildly improved between September 2024 and January 2025. Smoked pack per day x 40 years. Still smoking and wants to quit. Chantix caused nightmares. He wants to try bupropion again. Refer to [facility] for LDCT. ROS: Constitutional: No unexplained weight loss, fever, chills, fatigue or night sweats. Eyes: No vision changes, blurry vision, double vision, eye pain, eye redness, eye discharge. ENT: No hearing loss, sneezing, congestion, runny nose or sore throat. Respiratory: No shortness of breath, cough or sputum production. Cardiovascular: No chest pain, chest pressure or chest discomfort. No palpitations or pedal edema. Gastrointestinal: No anorexia, nausea, vomiting or diarrhea. No abdominal pain or blood in stool. Genitourinary: No dysuria, hematuria, urinary frequency. Neurologic: No headache, dizziness, syncope Musculoskeletal: see HPI Hematologic/Lymphatics: No bleeding or bruising. No painful lymph nodes. Skin: No rash Or new skin lesions Endocrine: No cold or heat intolerance. No polyuria or polydipsia. Psychiatric: No depression or anxiety. No SI/HI. Physical exam: Constitutional: Alert, in no distress. Head: Normocephalic. Eyes: Pupils are equal, round and reactive to light. Extraocular muscles intact. Ear, Nose and Throat: Canals clear. TMs normal. Normal nasal mucosa. No nasal discharge. No oral lesions. Neck: Supple, Full range of motion. No lymphadenopathy. No palpable thyroid masses. Respiratory: Clear to auscultation. Cardiovascular: S1 S2 regular. No murmurs. No carotid bruits. Gastrointestinal: Abdomen soft, non-tender, non-distended. Normal bowel sounds. No palpable masses. Genitourinary: patient deferred Neurologic: No focal neurological deficits. Skin: No rashes Musculoskeletal: No gross deformities. Normal range of motion. Extremities: Warm and well perfused. No clubbing, cyanosis or edema. intact peripheral pulses bilaterally. Psychiatric: Normal mood and affect [facility] Medical History (Updated 03/13/25 @ 12:32 by MARIE Ayala) Routine physical examination LFT elevation History of esophageal dilatation Tobacco use disorder Spinal stenosis of lumbar region Prediabetes Obstructive sleep apnea Obesity Low testosterone Insomnia Impotence of organic origin Essential hypertension Hyperlipidemia Hyperkalemia Hepatic steatosis History of depression History of infectious mononucleosis History of cocaine abuse Gout GERD (gastroesophageal reflux disease) Chronic diastolic (congestive) heart failure Chronic back pain CAD (coronary artery disease) Bruit of left carotid artery Backache Anemia Surgical History (Updated 08/28/24 @ 12:22 by MARIE Ayala) History of knee replacement History of lumbar fusion Hx of shoulder surgery History of appendectomy Social History (Updated 03/12/25 @ 08:29 by Jessica Gross MA) Housing: House Alcohol intake: never Patient Tobacco Use Status: Current everyday Tobacco user Cigarette Packs Per Day: 1 Cigarettes Per Day: 20 Years Smoked: 40 e-Cigarette/Vaping Use: Former Use Second Hand Smoke Exposure: No service: Yes Current occupational status: employed and retired Current occupation: Former [employer] nurse Cognitive needs: No Hearing needs: No Vision needs: No Questionnaire PHQ-9 Over the last 2 weeks, how often have you been bothered by any of the following problems? 1. Little interest or pleasure in doing things: not at all 2. Feeling down, depressed, or hopeless: not at all 3. Trouble falling or staying asleep, or sleeping too much: not at all 4. Feeling tired or having little energy: several days 5. Poor appetite or overeating: not at all 6. Feeling bad about yourself - or that you are a failure or have let yourself or your family down: not at all 7. Trouble concentrating on things, such as reading the newspaper or watching television: not at all 8. Moving or speaking so slowly that other people could have noticed. Or the opposite - being so fidgety or restless that you have been moving around a lot more than usual: not at all 9. Thoughts that you would be better off or of hurting yourself in some way: not at all Total score: 1 Depression Screening Interpretation: Negative Depression Screening Done: Yes 24353 - PHQ-9 Billing: Patient declined-do not bill Source: Developed by Drs. Cristi Wilder, Lise De La Paz, Oh Boyce and colleagues, with an educational shelley from [employer]. Thrive Questionnaire Date Thrive assessed: 03/12/25 I am a: Patient What is your living situation today?: I have a steady place to live Within the past 12 months, did the food you bought not last and you didn't have the money to get more?: I choose not to answer this question Within the past 12 months, did you worry whether your food would run out before you got money to buy more?: Never true Do you have trouble paying for medicines?: No Do you have trouble getting transportation to medical appointments?: No Do you have trouble paying your heating and electricity bill?: No Do you have trouble taking care of your child, family member or friend?: No Do you have trouble with day-to-day activities such as bathing, preparing meals, shopping, managing finances, etc.?: No Are you currently unemployed and looking for a job?: I choose not to answer this question Are you interested in more education?: No Please select the resources that you would like help with: None Currently or been in a relationship where the following occur: No concerns reported THRIVE Score: 0 AUDIT C Alcohol Use Questionnaire (AUDIT-C) 1. How often do you have a drink containing alcohol?: Never 2. How many drinks containing alcohol do you have on a typical day when you are drinking?: 1 or 2 3. How often do you have six or more drinks on one occasion?: Never Total Score: 0 Score Reviewed/Action Taken: No ANAIS-7 AMB Questionnaire ANAIS-7 Date ANAIS - 7 assessed: 03/12/25 Feeling nervous, anxious, or on edge: 0 = Not at all Not being able to stop or control worryin = Not at all Worrying too much about different things: 0 = Not at all Trouble relaxin = Not at all Being so restless that it is hard to sit still: 0 = Not at all Becoming easily annoyed or irritable: 0 = Not at all Feeling afraid as if something awful might happen: 0 = Not at all Total ANAIS-7 score (0-4 normal; 5-9 mild; 10-14 moderate; 15-21 severe): 0 Source: Developed by Drs. Cristi Wilder, Lise De La Paz, Oh Boyce and colleagues, with an educational shelley from [employer]. ANAIS-7 Assessment Billing ANAIS-7 Assessment Tool: ANAIS-7 Assessment 53254 Physical exam (Primary Care) Vital Signs: Last Vital Signs Pulse 64 03/12/25 08:29 Resp 14 03/12/25 08:29 BP 114/74 03/12/25 08:29 Pulse Ox 97 03/12/25 08:29 Oxygen Delivery Method Room Air 03/12/25 08:29 Oxygen Flow Rate 98.1 03/12/25 08:29 BMI result Body Mass Index 39.1 Tobacco/Smoking Status: Tobacco use Status Tobacco use date assessed 03/12/25 03/12/25 08:34 Patient Tobacco Use Status Current everyday Tobacco 03/12/25 08:34 e-Cigarette/Vaping Use Former Use 03/12/25 08:29 PHQ-9: PHQ-9 Score PHQ-9: Total score 1 03/12/25 08:45 Depression Screening Interpretation: Negative Thrive Assessment: Date of Thrive Assessment Date Thrive assessed 03/12/25 03/12/25 08:23 Currently or been in a relationship where the following occur: No concerns reported Coding Level of Care Code Est Pt Prev Care 40-64y(84552) Diagnoses Routine physical examination Z00.00 LFT elevation R79.89 Tobacco use disorder F17.200 Spinal stenosis of lumbar region M48.061 Prediabetes R73.03 Obstructive sleep apnea G47.33 Obesity E66.9 Hyperlipidemia E78.5 CAD (coronary artery disease) I25.10 Anemia D64.9 Additional Codes ANAIS-7 Assessment Billing - ANAIS-7 Assessment Tool: ANAIS-7 Assessment 14327 ([id number]) Assessment & Plan Assessment & Plan (1) Routine physical examination: Code(s): Z00.00 - Encounter for general adult medical examination without abnormal findings Category: Medical Plan: Patient is seen today for a routine physical. As part of this visit we reviewed the following issues, which are considered and essential part of preventative health in this age group: - Screening for colon cancer - Discussed Prostate cancer screening- PSA within 1 year normal. - Nutritional and exercise counseling - Counseling of injury prevention including fire prevention, smoke alarms and seat belt usage - Screening for depression - Prevention of and/or testing for infectious diseases - Education about skin cancer - Recommendations about immunizations - Recommendation of an eye exam - Screening for substance abuse (2) LFT elevation: Code(s): R79.89 - Other specified abnormal findings of blood chemistry Category: Medical Plan: This may be due to his diagnosis of hepatic steatosis. Check liver ultrasound with elastography. He will modify his diet and try to lose weight. Repeat LFTs and check hepatitis a, B and C serology. Patient will call if he develops gastrointestinal symptoms. (3) Tobacco use disorder: Code(s): F17.200 - Nicotine dependence, unspecified, uncomplicated Category: Medical Plan: Patient would like to quit. He had side effects on Chantix. He will retry bupropion. Side effects, administration and black box warning reviewed. patient had LDCT at [facility]. overdue. Referred. (4) Spinal stenosis of lumbar region: Code(s): M48.061 - Spinal stenosis, lumbar region without neurogenic claudication Category: Medical Plan: Patient is following up with his specialists and is going to have an MRI of the thoracic spine. He has torn about restarting opioids. He does not like the potential side effects and down falls of the type of medication. He has tried many alternatives. For now he is going to continue his current regimen. We discussed how weight loss can help reduce his pain. (5) Prediabetes: Code(s): R73.03 - Prediabetes Category: Medical Plan: Recommended low carb, low sugar diet. Continue Ozempic. Be consistent with dosing. He agrees. (6) Obstructive sleep apnea: Code(s): G47.33 - Obstructive sleep apnea (adult) (pediatric) Category: Medical Plan: Continue CPAP (7) Obesity: Code(s): E66.9 - Obesity, unspecified Category: Medical (8) Hyperlipidemia: Code(s): E78.5 - Hyperlipidemia, unspecified Category: Medical (9) CAD (coronary artery disease): Code(s): I25.10 - Atherosclerotic heart disease of [place] coronary artery without angina pectoris Category: Medical Plan: followed by Cardiology (10) Anemia: Code(s): D64.9 - Anemia, unspecified Category: Medical Plan: Mild. Colonoscopy and endoscopy up-to-date. Interval improvement. Normal B12 and iron. Monitor. Reviewed symptoms that would be concerning with the patient. Plan Follow up in 3 months Orders: Orders US abdomen holcomb w elastography 03/12/25 I25.10 - Atherosclerotic heart disease of [place] coronary artery without angina pectoris, R79.89 - Other specified abnormal findings of blood chemistry Aspartate Amino Transferase 3 Months I25.10 - Atherosclerotic heart disease of [place] coronary artery without angina pectoris, R79.89 - Other specified abnormal findings of blood chemistry Alanine Aminotransferase 3 Months I25.10 - Atherosclerotic heart disease of [place] coronary artery without angina pectoris, R79.89 - Other specified abnormal findings of blood chemistry Hepatitis A IgM 3 Months I25.10 - Atherosclerotic heart disease of [place] coronary artery without angina pectoris, R79.89 - Other specified abnormal findings of blood chemistry Hepatitis A,B,C Profile 3 Months I25.10 - Atherosclerotic heart disease of [place] coronary artery without angina pectoris, R79.89 - Other specified abnormal findings of blood chemistry Lipid Panel 3 Months E78.5 - Hyperlipidemia, unspecified, I25.10 - Atherosclerotic heart disease of [place] coronary artery without angina pectoris, R79.89 - Other specified abnormal findings of blood chemistry Referrals Pulmonology Referral F17.200 - Nicotine dependence, unspecified, uncomplicated Medications: New duloxetine (Cymbalta) 30 mg PO BID 90 caps 3RF bupropion HCl (smoking deter) Take 1 tablet po qam x 3 days then increase to 1 tab BID. 150 mg PO DAILY 90 days 180 tabs 1RF
[2025-03-12 08:29] VITALS: BP 114/74; PULSE 64; RESP 14; O2SAT 97; BMI 39.1
--- OUTSIDE RECORDS SUMMARY | 2025-03-12 08:34 | XMS_ITS | Encounter Summary ---
Author Organization [facility] Address [address] [place] [id number] Care Team Providers Care Box Loader Name Role Phone Barbara Kaba MD Primary Care Provider [phone] Maximino Melo MD Unavailable [phone] Candice Ortiz MD Unavailable Pcp, No Primary Care Provider Unavailabl e Encounter Details Date Type Department Care Team (Late st Contact Info) Description 11/13/2023 Scanned Document [facility] [address] [phone] Candice Ortiz MD [address] [place] [address] Social History Tobacco Use Types Packs/Day Years [...] on filedocumented in this encounter Care Teams Box Loader Relationship Specialty Start Date End Date Barbara Kaba MD PCP - General 12/04/18 12/10/23 Pcp, No PCP - General General Medicine 02/06/24 Maximino Melo MD Vision Specialist Cardiovascular Disease 12/04/18 Candice Ortiz MD [address] [place] [address] Surgery, Orthopedic 01/18/21 documented as of this encounter
--- OUTSIDE RECORDS SUMMARY | 2025-03-12 08:34 | XMS_ITS | Encounter Summary ---
Author Organization [facility] Address [address] [place] [address] Care Team Providers Care University Manager Name Role Phone Barbara Kaba MD Primary Care Provider Maximino Melo MD Unavailable [phone] Candice Ortiz MD Unavailable Pcp, No Primary Care Provider Unavailabl e Encounter Details Date Type Department Care Team (Late st Contact Info) Description 09/12/2021 Erroneous Encounter [facility] [address] [place] [phone] ProviderVimal MD Social History Tobacco Use Types [...] on filedocumented in this encounter Care Teams University Manager Relationship Specialty Start Date End Date Barbara Kaba MD PCP - General 12/04/18 12/10/23 Pcp, No PCP - General General Medicine 02/06/24 Maximino Melo MD Seafood And Service Meat Manager Cardiovascular Disease 12/04/18 Candice Ortiz MD [address] [place] [address] Surgery, Orthopedic 01/18/21 documented as of this encounter
--- OUTSIDE RECORDS SUMMARY | 2025-03-12 08:34 | XMS_ITS | Clinical Summary ---
Author Organization [facility] it[facility] Address [address] [place] [address] Care Team Providers Care Air Pollution Auditor Name Role Phone Carlos Patton MD Primary [...] age to complete this topic Care Teams Air Pollution Auditor Relationship Specialty Start Date End Date Carlos Patton MD PCP - General Internal Medicine 03/28/19
--- OUTSIDE RECORDS SUMMARY | 2025-03-12 08:34 | XMS_ITS | Encounter Summary ---
Author Organization [facility] Address [address] [place] [address] Care Team Providers Care Generator Man Name Role Phone Maximino Melo MD Unavailable [phone] Candice Ortiz MD Unavailable Pcp, No Primary Care Provider Unavailabl e Encounter Details Date Type Department Care Team (Late st Contact Info) Description 10/21/2024 Scanned Document [facility] [address] [phone] Diaen Pedroza [address] [place] [address] Social History Tobacco Use Types Packs/Day Years [...] on filedocumented in this encounter Care Teams Generator Man Relationship Specialty Start Date End Date Pcp, No PCP - General General Medicine 02/06/24 Maximino Melo MD Label Maker Cardiovascular Disease 12/04/18 Candice Ortiz MD [address] [place] [address] Surgery, Orthopedic 01/18/21 documented as of this encounter
--- OUTSIDE RECORDS SUMMARY | 2025-03-12 08:34 | XMS_ITS | Encounter Summary ---
Author Organization [facility] Address [address] [place] [address] Care Team Providers Care Agriculture Consultant Name Role Phone Barbara Kaba MD Primary Care Provider [phone] Maximino Melo MD Unavailable [phone] Candice Ortiz MD Unavailable Pcp, No Primary Care Provider Unavailabl e Encounter Details Date Type Department Care Team (Late st Contact Info) Description 09/18/2023 Scanned Document [facility] [address] [phone] Candice Ortiz MD [address] [place] [phone] Social History Tobacco Use Types Packs/Day Years [...] on filedocumented in this encounter Care Teams Agriculture Consultant Relationship Specialty Start Date End Date Barbara Kaba MD PCP - General 12/04/18 12/10/23 Pcp, No PCP - General General Medicine 02/06/24 Maximino Melo MD Manager Spring Cardiovascular Disease 12/04/18 Candice Ortiz MD [address] [place] [address] Surgery, Orthopedic 01/18/21 documented as of this encounter
--- OUTSIDE RECORDS SUMMARY | 2025-03-12 08:34 | XMS_ITS | Clinical Summary ---
Author Organization [facility] Address [address] [place] [address] Care Team Providers Care Motocross Racer Name Role Phone Maximino Melo MD Unavailable [phone] Candice Ortiz MD Unavailable Pcp, No Primary [...] Office Visit MG PAIN MGMT [id number] [address] [address] Phillip Deras DO Postlaminectomy syndrome, lumbar region (Primary Dx) 02/25/2025 Travel 02/12/2025 11:10 AM EDT Anc[facility] [address] [phone] 02/12/2025 10:00 AM EDT Office Visit Orthopedic [address] [address] Candice Ortiz MD Radiculopathy, lumbar region (Primary Dx) 02/05/2025 Telephone MG PAIN MGMT [id number] [address] [phone] Phillip Deras DO 01/12/2025 11:30 AM EDT Office Visit MG PAIN MGMT [id number] [address] [address] Candice Ortiz MD Ramos, Lauren [...] this topic Medical Devices Implanted Type Area Asbestos Pipe Supervisor Device Identifier Shelf Expiration Date Model / Serial / Lot [id number] Cage Spinal [id number] Modl 10d Xl Wide Sterl Lf - [id number] Implanted:Qty: 1 on 04/20/2021 by Candice Ortiz MD at [facility] Cage N/A: Spine Lumbar [employer] 10/17/2025 [id number] / / [id number] Subhash Spinal 100mm 5.5mm Illico Precontour Ti Nonst - [id number] Implanted:Qty: 1 on 01/06/2019 by Fabian Stovall MD at [facility] Nail/Subhash N/A: Spine Lumbar [employer] 04340-400 / / [id number] Screw Set Ti Spine Hexalobe Zodiac - [id number] Implanted:Qty: 6 on 01/06/2019 by Fabian Stovall MD at [facility] Spine N/A: Spine Lumbar [employer] [id number] / / [id number] Screw Bone Spinal 50mm Ti 6.5mm Pa Leonel - [id number] Implanted:Qty: 4 on 01/06/2019 by Fabian Stovall MD at [facility] Spine N/A: Spine Lumbar [employer] [id number] / / [id number] Screw Bone Spinal 45mm Ti 6.5mm Pa Leonel - [id number] Implanted:Qty: 2 on 01/06/2019 by Fabian Stovall MD at [facility] Spine N/A: Spine Lumbar [employer] 89304-14 / / [id number] Graft Bone 26mm 18mm Infs Lg Spine Rhbmp-2 Bvn Collagen - [id number] Implanted:Qty: 1 on 01/06/2019 by Fabian Stovall MD at [facility] Tissue N/A: Spine Lumbar [employer] 12/06/2020 [id number] / / [id number] Substitute Bone Graft Ms Grft Matrix Block Void Filler 20ml - [id number] Implanted:Qty: 1 on 01/06/2019 by Fabian Stovall MD at [facility] Void Filler N/A: Spine Lumbar [employer] 09/04/2021 [id number] / / [id number] Substitute Bone Graft Ms Grft Matrix Block Extension Void - [id number] Implanted:Qty: 1 on 01/06/2019 by Fbaian Stovall MD at [facility] Void Filler N/A: Spine Lumbar [employer] 06/04/2021 [id number] / / [id number] Osteostrand Plus Fibers Syringe Large - [id number] Implanted:Qty: 1 on 04/20/2021 by Candice Ortiz MD at [facility] Void Filler N/A: Spine Lumbar [employer] 03/02/2023 [id number] / [id number] / [id number] Rise-L Spacer [id number], 7-14mm Implanted:Qty: 1 on 01/06/2019 by Fabian Stovall MD at [facility] N/A: Spine Lumbar [employer] 193.304 / / Rise-L Spacer 18 X 45mm, 7-14mm Implanted:Qty: 1 on 01/06/2019 by Fabian Stovall MD at [facility] N/A: Spine Lumbar [employer] 193.303 / / 200mm Subhash Implanted:Qty: 2 on 01/06/2019 by Fabian Stovall MD at [facility] N/A: Spine Lumbar Other [id number] / / Description:Illico 50mm Mis Subhash Implanted:Qty: 1 on 04/20/2021 by Candice Ortiz MD at [facility] N/A: Spine Lumbar [employer] I -MN-50 / / 45mm Mis Subhash Implanted:Qty: 1 on 04/20/2021 by Candice Ortiz MD at [facility] N/A: Spine Lumbar [employer] I -MN-45 / / 6.5x50mm Screw Implanted:Qty: 4 on 04/20/2021 by Candice Ortiz MD at [facility] N/A: Spine Lumbar [employer] I 05-PA-65-50 / / Procedures Procedure Name Priority Date/Time Associated Diagnosis Comments DRUG MONITORING, PANEL 6 WITH CONFIRMATION, URINE Routine 02/25/2025 12:22 PM EDT Postlaminectomy syndrome, lumbar region XR LUMBAR SPINE COMPLETE W/FLEX,EXT 4+VIEWS Routine 02/12/2025 11:24 AM EDT Radiculopathy, lumbar region from Last 3 Months Results * Drug Monitoring, Panel 6 With Confirmation, Urine (Q 68099) (02/25/2025 12:22 PM EDT) Alcohol Metabolites NEGATIVE <500 ng/mL [facility] Amphetamines, Urine Ql NEGATIVE <500 ng/mL [facility] [employer] Barbiturates NEGATIVE <300 ng/mL [facility] Benzodiazepines NEGATIVE <100 ng/mL [facility] Cocaine Metabolite NEGATIVE <150 ng/mL [facility] 6 Acetylmorphine NEGATIVE <10 ng/mL [facility] Marijuana Metabolite NEGATIVE <20 ng/mL [facility] Methadone Metabolite NEGATIVE <100 ng/mL [facility] Opiates NEGATIVE <100 ng/mL [facility] Oxycodone Screen, Urine NEGATIVE <100 ng/mL [facility] Phencyclidine, Urine NEGATIVE <25 ng/mL [facility] Creatinine, Urine 104.7 > or = 20.0 mg/dL [employer] pH 6.3 4.5 - 9.0 [employer] Oxidant NEGATIVE <200 mcg/mL [employer] Notes and Comments Q Machine Safety Manangement Comment: This drug testing is for medical treatment only. Analysis was performed as non-forensic testing and these results should be used only by healthcare providers to render diagnosis or treatment, or to monitor progress of medical conditions. LDT Notes: Confirmation tests were developed and their analytical performance characteristics have been determined by [employer] [facility]. It has not been cleared or approved by the FDA. This assay has been validated pursuant to the CLIA regulations and is used for clinical purposes. Healthcare Providers needing Interpretation assistance, please contact us at [phone] ( ) M-F, 8am to 10pm EST Urine Urine specimen / Unknown 02/25/2025 12:22 PM EDT 02/26/2025 4:54 AM EDT us Phillip Deras DO URINE ORDERABLES Final Result Performing Organization Address City/[facility]/ZIP Co de Phone Number [employer] [address] [place] [phone] * XR Lumbar spine complete w/Flex,Ext, 4+Views (02/12/2025 11:24 AM EDT) Narrative [facility] - 02/12/2025 11:24 AM EDT This exam was performed in office at [facility] and images reviewed by orthopedic provider. ??Any findings are documented within ambulatory encounter note on date of service. Candice Ortiz MD IMG DIAGNOSTIC IMAGING ORDERABLE S Final Result Performing Organization Address City/[facility] Co de Phone Number [facility] from Last 3 Months Insurance [facility] MGD MEDICARE AETNA MGD MEDICARE [facility] WORKER'S COMP Advance Directives * Full Code (Latest Code Status on File) Date Activated Date Inactivated Comments 04/20/2021 10:14 AM * Full Code Date Activated Date Inactivated Comments 01/06/2019 4:06 PM 04/20/2021 9:56 AM * Full Code Date Activated Date Inactivated Comments 01/06/2019 6:33 AM 01/06/2019 4:06 PM Care Teams Motocross Racer Relationship Specialty Start Date End Date Pcp, No PCP - General General Medicine 02/06/24 Maximino Melo MD Eye Dropper Assembler Cardiovascular Disease 12/04/18 Candice Ortiz MD [address] [place] [address] Surgery, Orthopedic 01/18/21
--- OUTSIDE RECORDS SUMMARY | 2025-03-12 08:34 | XMS_ITS | Clinical Summary ---
Author Organization [facility] Address [address] [place] [address] Care Team Providers Care Mechanical Engineering Draftsperson Name Role Phone Unknown, Md Primary Care [...] age to complete this topic Care Teams Mechanical Engineering Draftsperson Relationship Specialty Start Date End Date Unknown, PCP - General 01/29/24
--- OUTSIDE RECORDS SUMMARY | 2025-03-12 08:34 | XMS_ITS | Encounter Summary ---
Author Organization [facility] Address [address] [place] [place] [address] Care Team Providers Care Reinforced Concrete Inspector Name Role Phone Barbara Kaba MD Primary Care Provider [phone] Maximino Melo MD Unavailable [phone] Candice Ortiz MD Unavailable Pcp, No Primary Care Provider Unavailabl e Encounter Details Date Type Department Care Team (Late st Contact Info) Description 05/30/2021 Erroneous Encounter [facility] CONVERSION DEPT [address] [place] [address] ProviderVimal MD Social History Tobacco Use Types [...] on filedocumented in this encounter Care Teams Reinforced Concrete Inspector Relationship Specialty Start Date End Date Barbara Kaba MD PCP - General 12/04/18 12/10/23 Pcp, No PCP - General General Medicine 02/06/24 Maximino Melo MD Care Giver Cardiovascular Disease 12/04/18 Candice Ortiz MD [address] [place] [address] Surgery, Orthopedic 01/18/21 documented as of this encounter
--- OUTSIDE RECORDS SUMMARY | 2025-03-12 08:34 | XMS_ITS | Encounter Summary ---
Author Organization [facility] Address [address] [place] [address] Care Team Providers Care Montessori Paraprofessional Name Role Phone Barbara Kaba MD Primary Care Provider [phone] Maximino Melo MD Unavailable [phone] Candice Ortiz MD Unavailable Pcp, No Primary Care Provider Unavailabl e Encounter Details Date Type Department Care Team (Latest Contact Info) Description 02/21/2021 Lab Requisition [facility]FF[address] (?) Drive Through [address] [place] [address] [address] [place] [address] Candice Ortiz MD [address] [place] [address] Encounter for laboratory testing for COVID-19 virus [...] Detected Not Detected 02/21/2021 2:59 PM EDT [facility] Comment: Negative results do not [...] was completed and performance characteristics established by [facility] as per the FDA and CLIA requirement for this EUA. The Aptima SARS-CoV-2 assay Letter of Authorization, along with the authorized Fact Sheet for Healthcare Providers, the authorized Fact Sheet for Patients, and authorized labeling are available on the FDA website: https://www.fda.gov/medical-devices/scgkavmms-htrkvdzssm-dlcqfkn-devices/emergen - o-vyjaspihmppnlu-yhrkfit-devices. Performed at [facility], [place], [place] ??CT License 0385 ??CLIA [id number] Source Nasopharyngeal 02/21/2021 2:59 PM EDT [facility] Comment:Performed at [facility], [place] license No. [id number] CLIA No. [id number] Microbiology Nasopharyngeal swab / Unknown 02/21/2021 10:44 AM EDT 02/21/2021 10:44 AM EDT us Candice Ortiz MD MICROBIOLOGY - GENERAL ORDERABLE S Final Result [facility] [address] [place] [address] documented in this encounter Visit Diagnoses Diagnosis Encounter for laboratory testing for COVID-19 virus documented in this encounter Care Teams Montessori Paraprofessional Relationship Specialty Start Date End Date Barbara Kaba MD PCP - General 12/04/18 12/10/23 Pcp, No PCP - General General Medicine 02/06/24 Maximino Melo MD Radiology Interventional Physician Cardiovascular Disease 12/04/18 Candice Ortiz MD [address] [facility] [address] [place] [address] Surgery, Orthopedic 01/18/21 documented as of this encounter
--- OUTSIDE RECORDS SUMMARY | 2025-03-12 08:34 | XMS_ITS | Encounter Summary ---
Author Organization [facility] Address [address] [place] [address] Care Team Providers Care General Warehouse Worker Name Role Phone Barbara Kaba MD Primary Care Provider [phone] Maximino Melo MD Unavailable [phone] Candice Ortiz MD Unavailable Pcp, No Primary Care Provider Unavailabl e Encounter Details Date Type Department Care Team (Late st Contact Info) Description 06/06/2021 Erroneous Encounter [facility] CONVERSION DEPT [address] [place] [address] ProviderVimal MD Social History Tobacco Use Types [...] on filedocumented in this encounter Care Teams General Warehouse Worker Relationship Specialty Start Date End Date Barbara Kaba MD PCP - General 12/04/18 12/10/23 Pcp, No PCP - General General Medicine 02/06/24 Maximino Melo MD Transportation Technician Cardiovascular Disease 12/04/18 Candice Ortiz MD [address] [place] [address] Surgery, Orthopedic 01/18/21 documented as of this encounter
== END 2025-03-12 09:11 | disposition home or self-care (01) ==
LOC: HO.HMCFM 08:16
PROVIDERS: PCP Physician Assistant Medical; Visit Provider Physician Assistant Medical
DX: Z00.00 Encounter for general adult medical examination without abnormal findings (principal); R79.89 Other specified abnormal findings of blood chemistry; F17.200 Nicotine dependence, unspecified, uncomplicated; M48.061 Spinal stenosis, lumbar region without neurogenic claudication; R73.03 Prediabetes; G47.33 Obstructive sleep apnea (adult) (pediatric); E66.9 Obesity, unspecified; Z68.39 Body mass index [BMI] 39.0-39.9, adult; E78.5 Hyperlipidemia, unspecified; I25.10 Atherosclerotic heart disease of native coronary artery without angina pectoris; D64.9 Anemia, unspecified

== ENCOUNTER → 2025-03-12 08:15 | Outpatient (BNVA) | payer MEDICARE, SELFPAY | PROVIDERS: PCP Physician Assistant Medical; Visit Provider Physician Assistant Medical | DX: Z00.00 Encounter for general adult medical examination without abnormal findings (principal); R79.89 Other specified abnormal findings of blood chemistry; M48.061 Spinal stenosis, lumbar region without neurogenic claudication; R73.03 Prediabetes; G47.33 Obstructive sleep apnea (adult) (pediatric); E66.9 Obesity, unspecified; Z68.39 Body mass index [BMI] 39.0-39.9, adult; E78.5 Hyperlipidemia, unspecified; I25.10 Atherosclerotic heart disease of native coronary artery without angina pectoris; D64.9 Anemia, unspecified; I11.0 Hypertensive heart disease with heart failure; I50.32 Chronic diastolic (congestive) heart failure; F17.210 Nicotine dependence, cigarettes, uncomplicated; Z79.899 Other long term (current) drug therapy | CPT/HCPCS: 96127; 99396 ==